=== PATIENT | female | born 1955 | race Hispanic/Latino ===

== ENCOUNTER → 2025-05-27 | Outpatient (CLI) | payer OTHER ==
--- NOTE | 2025-05-28 07:05 | HMCIMG ---
EXAMINATION: ULTRASOUND OF THE THYROID. CLINICAL HISTORY: Thyroid disorder. COMPARISON: None. TECHNIQUE: Transverse and longitudinal images were obtained through both lobes and the isthmus of the thyroid. FINDINGS: The thyroid gland is normal in caliber with heterogenous tissue echotexture. The right thyroid lobe measures 3.8 x 1.4 x 1.5 cm and the left thyroid lobe measures 3.8 x 1.5 x 1.3 cm in the craniocaudal, AP, and transverse dimensions respectively. The isthmus measures 0.17 cm in AP dimension. Right lobe: There is a hyperechoic solid nodule that measures 0.9 x 0.8 x 0.8 cm at the mid pole (TR3). There is an isoechoic mixed solid cystic nodule that measures 0.5 x 0.4 x 0.5 cm at the mid pole (TR2). There is an isoechoic solid nodule that measures 0.7 x 0.5 x 0.6 cm at the mid pole (TR3). There is an isoechoic mixed solid cystic nodule that measures 0.4 x 0.4 x 0.4 cm at the mid pole (TR2). Left lobe: There is a hypoechoic mixed solid cystic nodule that measures 1.2 x 1.1 x 1.1 cm at the upper pole (TR3). There is an isoechoic solid nodule that measures 0.5 x 0.4 x 0.4 cm at the mid pole (TR3). No significantly enlarged lymph nodes. IMPRESSION: Heterogenous echotexture of both lobes of the thyroid, of concern for thyroiditis. Nodules in both lobes of the thyroid. TI-RADS follow up recommendations: TR1: no FNA required TR2: no FNA required TR3: more than or equal to 1.5 cm follow up, more than or equal to 2.5 cm FNA follow up: 1, 3 and 5 years TR4: more than or equal to 1.0 cm follow up, more than or equal to 1.5 cm FNA follow up: 1, 2, 3 and 5 years TR5: more than or equal to 0.5 cm follow up, more than or equal to 1.0 cm FNA annual follow up for up to 5 years /[place]
== END | disposition home or self-care (01) ==
LOC: RAH 13:00
PROVIDERS: ATTEND Family Medicine
DX: E04.2 Nontoxic multinodular goiter (principal); E07.9 Disorder of thyroid, unspecified
CPT/HCPCS: 76536